=== PATIENT | male | born 1990 | race Caucasian/White ===

== ENCOUNTER 2022-04-30 08:21 | Emergency (ER) | payer OTHER, SELFPAY ==
[2022-04-30 08:37] VITALS: BP 172/106; PULSE 78; RESP 18; TEMP 36.6; O2SAT 98; BMI 33.6
--- NOTE | 2022-04-30 09:27 | XR_ITS ---
WS: [id number] Exam: XR lumbar spine 2-3V* [id number] Date/Time of Exam: 04/30/2022 9:32 AM Reason For Exam: fall/back pain No acute fracture or dislocation. Disc spaces are preserved. A prominent spur projects posteriorly al nate the lower endplate of L5 and might predispose the patient to spinal canal stenosis. Posterior anna ments are otherwise intact. XR/XR lumbar spine 2-3V* [id number] IMPRESSION: 1. No fracture or malalignment noted. 2. Prominent posterior spur projects from the lower endplate of L5 and might ca use spinal canal stenosis.
--- NOTE | 2022-04-30 09:29 | ED_ITS ---
HPI - Back Pain/Injury General: Chief Complaint: Back Pain/Injury Stated Complaint: back pain Time Seen by Provider: 04/30/22 08:22 Source: patient Mode of arrival: ambulatory Limitations: no limitations History of Present Illness: 31-year-old male presents emergency room complaining of low back pain. 2 days ago he fell at his home landed on his back and his buttocks yesterday he has had low back pain no radiation pain into the lower extremities no difficulty with bowel or bladder. No previous history of back injury or surgery. He has been taking some ibuprofen with moderate relief at best. MD elicited complaint: back pain Onset (ago): day(s) (2) Timing: constant Severity: moderate Quality: aching Location: lumbar spine Radiation: none Exacerbating factors: movement and walking Relieving factors: supine Context: fall Associated symptoms: Deny abdominal pain, arthralgias, chills, change in bowel habits, difficulty walking, dysuria, fatigue, fecal incontinence, fever(s), hematuria, myalgias, nausea, numbness, syncope, tingling/numbness/burning, urinary frequency, urinary urgency, vomiting or weakness Treatments prior to arrival: cold therapy, heat therapy and NSAIDS Work related injury: No Review of Systems Const: Denies: fever(s), chills or fatigue ENMT: Denies: throat pain, ear or mastoid pain, nasal discharge or nasal congestion Card: Denies: syncope Resp: Denies: dyspnea, productive cough or non-productive cough GI: Denies: abdominal pain, nausea, vomiting, fecal incontinence or change in bowel habits : Denies: dysuria, urinary urgency or hematuria Skin/Breast: Denies: rash or pruritus Neuro: Denies: difficulty walking PFSH ED PFSH: Medical History (Updated 04/30/22 @ 13:43 by Romulo Degroot DO) No significant past medical history Surgical History (Updated 04/30/22 @ 13:43 by Romulo Degroot DO) No pertinent past surgical history Social History (Updated 04/30/22 @ 13:43 by Romulo Degroot DO) Smoking and tobacco status: never smoked Alcohol intake: current Physical Exam Const: GENERAL APPEARANCE: cooperative and comfortable ORIENTATION/CONSCIOUSNESS: Yes awake, Yes oriented to person, Yes oriented to place and Yes oriented to time HENMT: COMMON NORMALS: normocephalic, atraumatic and hearing grossly normal bilaterally HEAD & SCALP: normocephalic and atraumatic Neck/C-Spine: COMMON NORMALS: no JVD Resp: COMMON NORMALS: normal respiratory effort, No retractions, No use of accessory muscles and clear to auscultation bilaterally AUSCULTATION: clear to auscultation bilaterally Cardio: COMMON NORMALS: no JVD, regular rate, regular rhythm and No murmurs present (Cardio) RATE: regular rate RHYTHM: regular rhythm GI: COMMON NORMALS: Soft to palpation and No hepatosplenomegaly present AUSCULTATION: Yes normoactive bowel sounds PALPATION: Yes Soft to palpation, No Tenderness to palpation present (GI), No Guarding due to palpation present (GI) and Yes No hepatosplenomegaly present Extremity: COMMON NORMALS: normal to inspection, capillary refill normal, no clubbing, cyanosis or edema, no calf tenderness and no pedal edema OTHER: Straight leg raising negative. Deep tendon reflexes +2/4 lower extremities. Neuro: SENSORIUM/ORIENTATION: Yes oriented to person, Yes oriented to place and Yes oriented to time Skin: COMMON NORMALS: no rashes or lesions noted GENERAL SKIN EXAM: no rashes or lesions noted Course Vital Signs: Vital signs: Vital Signs Temperature 97.8 F 04/30/22 08:37 Pulse Rate 78 04/30/22 08:37 Respiratory Rate 18 04/30/22 08:37 Blood Pressure 172/106 04/30/22 08:37 Pulse Oximetry 98 04/30/22 08:37 MDM - Back Pain/Injury Medical Decision Making Improved slightly with medications given. Will discharge home on steroid taper as well as pain medications anti-inflammatories muscle action to use as needed. Follow-up with primary care if not improving. Labs Radiology Impressions Lumbar Spine X-Ray 04/30/22 09:27 IMPRESSION: 1. No fracture or malalignment noted. 2. Prominent posterior spur projects from the lower endplate of L5 and might cause spinal canal stenosis. Discharge Plan Discharge Clinical Impression: Strain of lumbar region Prescriptions: New hydrocodone-acetaminophen 5-325 mg tablet 1 tab PO Q6H PRN (Reason: pain) Qty: 10 0RF prednisone 20 mg tablet 20 mg PO TID Qty: 15 0RF Rx Instructions: 1 p.o. 3 times daily x3 days, 1 p.o. twice daily x2 days, 1 p.o. daily x2 days diclofenac sodium 75 mg tablet,delayed release (DR/EC) 75 mg PO Q12H PRN (Reason: pain) Qty: 20 0RF tizanidine 4 mg tablet 4 mg PO Q6H PRN (Reason: muscle spasticity) Qty: 20 0RF Rx Instructions: do not exceed 3 doses per 24 hrs Discharge Orders: Discharge ED (Routine); Ordered 04/30/22 Ordered By: Romulo Degroot Patient Instructions: Opioid Safety Activity Restrictions/Additional Instructions: Follow-up with your primary care doctor if symptoms worsen. Coding Level of Care Code ED Area Operations Director for Jorge Fwd Exam Comprehensive
[2022-04-30] MEDS: dexamethasone 10 mg/mL INJ IM (09:54)
[2022-04-30] MEDS: ketorolac 60 mg/2 mL INJ IM (09:54)
== END 2022-04-30 11:00 | disposition home or self-care (01) ==
PROVIDERS: Emergency Provider Family Medicine
DX: S39.012A Strain of muscle, fascia and tendon of lower back, initial encounter (principal); W19.XXXA Unspecified fall, initial encounter
CPT/HCPCS: 72100; 96372; 99284; J1100; J1885

== ENCOUNTER 2023-01-12 01:35 | Emergency (ER) | payer OTHER, SELFPAY ==
[2023-01-12 01:46] VITALS: BP 137/92; PULSE 92; RESP 16; TEMP 36.3; O2SAT 97; BMI 33.0
[2023-01-12 02:48] VITALS: BP 138/81; PULSE 78; RESP 18; O2SAT 98
--- NOTE | 2023-01-12 02:56 | ED_ITS ---
HPI - Extremity Problem General: Chief complaint: Extremity Injury, Lower Stated complaint: RLE pain; R back pain Time Seen by Provider: 01/12/23 02:51 History of Present Illness: Patient is a 32-year-old male comes to the ED with right lower back pain. Symptoms started approximately 3 days ago. Patient says he has a history of sciatica and is having another flareup of sciatic pain. Symptoms started approximately 3 days ago. He denies any trauma or injury to cause symptoms. He rates the pain currently a 10 out of 10 and its located in the right lower back and it radiates down patient's right leg. He has tried applying cold packs, heat, massage, ibuprofen and Tylenol to help with symptoms. Denies any bladder or bowel incontinence, pelvic anesthesia or any weakness to lower extremities. Associated symptoms: Deny chest pain, fever(s) or rash Review of Systems Const: Denies: fever(s), chills or fatigue Eyes: Denies: change in vision or eye discomfort ENMT: Denies: throat pain, odynophagia, nasal discharge or nasal congestion Card: Denies: chest pain, palpitations, edema, swelling of feet/ankles, dyspnea on exertion or orthopnea Resp: Denies: dyspnea, productive cough or non-productive cough GI: Denies: abdominal pain, nausea, vomiting, diarrhea, constipation or hematochezia : Denies: flank pain, difficulty urinating, dysuria or hematuria Musc: Reports: back pain; Denies: neck pain or extremity swelling Skin/Breast: Denies: rash or new lesions Neuro: Denies: headache(s), numbness in extremities or weakness in extremities [facility] ED PFSH: Medical History (Updated 01/12/23 @ 03:01 by IKE Paulson) No significant past medical history Surgical History (Updated 04/30/22 @ 13:43 by Romulo Degroot DO) No pertinent past surgical history Social History (Updated 04/30/22 @ 13:43 by Romulo Degroot DO) Smoking and tobacco status: never smoked Alcohol intake: current Physical Exam Const: COMMON NORMALS: patient oriented x3 HENMT: COMMON NORMALS: normocephalic HEAD & SCALP: normocephalic MOUTH: Normal oral and palatal mucosa present THROAT: posterior oropharynx normal and uvula midline Neck/C-Spine: COMMON NORMALS: supple GENERAL: Yes normal visual inspection Resp: COMMON NORMALS: normal respiratory effort, No retractions, No use of accessory muscles and clear to auscultation bilaterally AUSCULTATION: clear to auscultation bilaterally Cardio: COMMON NORMALS: regular rate, regular rhythm, S1 normal heart sound present, S2 normal heart sound present, No gallops present (Cardio), No clicks present (Cardio), No murmurs present (Cardio) and Peripheral pulses 2+ throughout RATE: regular rate RHYTHM: regular rhythm HEART SOUNDS: S1 normal heart sound present and S2 normal heart sound present PERIPHERAL PULSES: Peripheral pulses 2+ throughout GI: COMMON NORMALS: Normal to inspection, nondistended, normoactive bowel sounds present, Soft to palpation, non-tender and no masses PALPATION: Yes Soft to palpation : COMMON NORMALS: Yes no CVA tenderness BLADDER/KIDNEY EXAM: Yes no CVA tenderness Back/Pelvis: COMMON NORMALS: no CVA tenderness LUMBAR SPINE/LOWER BACK: Yes pain with ROM, No lumbar spinal tenderness and Yes paraspinal muscle tenderness Lumbar paraspinal muscle tenderness: right Right lumbar paraspinal muscle tenderness: L4 and L5 Extremity: COMMON NORMALS: normal to inspection Neuro: COMMON NORMALS: patient oriented x3 GAIT: Yes Normal gait present Skin: GENERAL SKIN EXAM: dry skin Course Vital Signs: Vital signs: Vital Signs Temperature 97.4 F L 01/12/23 01:46 Pulse Rate 83 01/12/23 03:22 Respiratory Rate 16 01/12/23 03:22 Blood Pressure 138/81 01/12/23 02:48 Pulse Oximetry 100 01/12/23 03:22 Oxygen Delivery Me thod 01/12/23 02:48 MDM - Extremity (Nontraumatic) Medical Decision Making Patient is a 32-year-old male comes to the ED with right lower back pain. Symptoms started approximately 3 days ago. Patient says he has a history of sciatica and is having another flareup of sciatic pain. Symptoms started approximately 3 days ago. He denies any trauma or injury to cause symptoms. He rates the pain currently a 10 out of 10 and its located in the right lower back and it radiates down patient's right leg. Denies any cauda equina symptoms. Vitals stable. Patient has right lumbar paraspinal muscle tenderness L4 and L5. No lumbar spinal tenderness. Rest of exam is benign. Patient diagnosed lumbar radiculopathy and was given a dose of pain med, steroid and muscle relaxer here in the ED. He was stable for discharge home and sent home with a prescription for Celebrex, a muscle relaxer and steroid Dosepak. Return to ED precautions given. Follow-up with PCP in the next week for reevaluation. Patient understood and agreed with plan. Discharge Plan Discharge Patient Disposition: Home Clinical Impression: Lumbar radiculopathy Condition: Stable Prescriptions: New celecoxib 100 mg capsule 100 mg PO BID PRN (Reason: pain) Qty: 20 0RF methylprednisolone 4 mg tablets,dose pack See Rx Instructions .ROUTE .COMPLEX Qty: 21 0RF Rx Instructions: orally per package directions cyclobenzaprine 10 mg tablet 10 mg PO BID PRN (Reason: muscle spasm) Qty: 20 0RF No Action hydrocodone-acetaminophen 5-325 mg tablet 1 tab PO Q6H PRN (Reason: pain) Qty: 10 0RF prednisone 20 mg tablet 20 mg PO TID Qty: 15 0RF Rx Instructions: 1 p.o. 3 times daily x3 days, 1 p.o. twice daily x2 days, 1 p.o. daily x2 days diclofenac sodium 75 mg tablet,delayed release (DR/EC) 75 mg PO Q12H PRN (Reason: pain) Qty: 20 0RF tizanidine 4 mg tablet 4 mg PO Q6H PRN (Reason: muscle spasticity) Qty: 20 0RF Rx Instructions: do not exceed 3 doses per 24 hrs Discharge Orders: Discharge ED (Routine); Ordered 01/12/23 Ordered By: Rashid Cunha Discharge Diet: Regular Discharge Activity: Increase activity as tolerated Patient Instructions: Lumbar Radiculopathy (ED) Activity Restrictions/Additional Instructions: Follow-up with medical provider as directed in the next 5 to 7 days for reevaluation. Take medications as prescribed. Stretch lower back muscles daily. Apply cold pack or heat on lower back to help with symptoms as well. Return to the ER or your medical provider if condition worsens. Please read and understand discharge instructions. Thank you for choosing [facility] for your healthcare needs today. Please realize this is an emergency room and that we are providing you with a medical screening exam and this may not be complete and all inclusive of all the testing and or work up that you may need to determine your ailment or severity of your illness. It is very important that you follow up as instructed or that you return to the Emergency Department should you have concerns or if your condition changes or worsens in any way. Coding Level of Care Code ED Fabrication Lead for Jorge Strong
[2023-01-12] MEDS: orphenadrine 30 mg/mL Inj 2 mL 60 MG IM (03:01)
[2023-01-12] MEDS: ketorolac 60 mg/2 mL INJ IM (03:02)
[2023-01-12] MEDS: dexamethasone 10 mg/mL INJ IM (03:02)
[2023-01-12] MEDS: oxyCODONE-APAP 5-325 mg Tablet 1 TAB PO (03:19)
[2023-01-12 03:22] VITALS: PULSE 83; RESP 16; O2SAT 100
--- NOTE | 2023-01-19 17:05 | DCPLANNER ---
01.18.23 - patient called due to no primary care physician - unable to leave a voicemail 01.19.23 - patient called due to no primary care physician - unable to leave a voicemail.
== END 2023-01-12 03:23 | disposition home or self-care (01) ==
PROVIDERS: Emergency Provider Physician Assistant
DX: M54.16 Radiculopathy, lumbar region (principal)
CPT/HCPCS: 96372; 99284; J1100; J1885; J2360

== ENCOUNTER 2023-01-16 14:00 | Emergency (ER) | payer OTHER, SELFPAY ==
[2023-01-16 14:12] VITALS: BP 194/122; PULSE 86; RESP 18; TEMP 36.7; O2SAT 97
--- NOTE | 2023-01-16 15:06 | XR_ITS ---
WS: [id number] Lumbar spine, 3 views, 01/16/2023 Clinical Data: low back pain Comparison: Lumbar spine, 04/30/2022 Findings: No compression fractures or subluxation is seen. No disc space narrowing is seen. The transverse proc esses and SI joints are normal. XR/XR lumbar spine 2-3V* [id number] Impression: Negative lumbar spine.
--- NOTE | 2023-01-16 15:07 | W.ED.EXTPRO ---
HPI - Extremity Problem General: Chief complaint: Extremity Problem,Nontraumatic Stated complaint: Right leg pain Time Seen by Provider: 01/16/23 15:06 History of Present Illness: Patient complaining of flareup of right lower back pain with sciatica radiating down the right leg. Patient states has been going on for about 3 weeks. Patient went to the ER here about 4 days ago. Patient did get an injection as well as some medicine which helped for about 24 hours. The pain came back and is worse. Patient does have a follow-up appointment with his primary care doc in about 7 days. MD Complaint: extremity pain Onset (ago): week(s) (36) Pain Consistency: constant Severity scale (1-10): 10 Quality: burning and aching Radiation: distal (Down right leg) Relieving factors: nothing Exacerbating factors: weight bearing and palpation Associated symptoms: Reports no associated symptoms; Deny fever(s) or rash Context: other (History of low back pain with right-sided sciatica no recent injury) Review of Systems General: Reports: 10 or more systems reviewed and unremarkable except in HPI and below Const: Denies: fever(s), chills or body aches Eyes: Denies: change in vision ENMT: Denies: throat pain or hoarseness Resp: Denies: dyspnea, productive cough, non-productive cough or wheezing GI: Reports: diarrhea; Denies: abdominal pain, nausea or vomiting : Denies: flank pain, difficulty urinating, dysuria or urinary frequency Musc: Reports: back pain; Denies: neck pain Skin/Breast: Denies: rash, pruritus, erythema or photosensitivity Neuro: Denies: headache(s), numbness in extremities or weakness in extremities Psych: Denies: anxiety, depression, mood swings or panic attacks Endo: Denies: polyuria, polydipsia or tired all the time Kristopher/Lymph: Denies: easy bruising, easy bleeding, petechiae or purpura All/Imm: Denies: urticaria, throat swelling, tongue swelling or facial swelling PFSH ED PFSH: Medical History No significant past medical history Surgical History No pertinent past surgical history Social History (Reviewed 01/16/23 @ 15:19 by PAIGE Barriga Smoking and tobacco status: never smoked Alcohol intake: current Physical Exam Const: COMMON NORMALS: no acute distress, average body habitus, patient oriented x3, no limitations, healthy appearing, alert and well nourished HENMT: COMMON NORMALS: normocephalic, atraumatic and hearing grossly normal bilaterally HEAD & SCALP: normocephalic and atraumatic Eye: COMMON NORMALS: Equal, round and reactive pupils present, EOMs intact bilaterally and conjunctivae normal CONJUNCTIVA: Yes conjunctivae normal PUPIL: Yes Equal, round and reactive pupils present Neck/C-Spine: COMMON NORMALS: full ROM, no lymphadenopathy, supple, no JVD and Thyroid normal THYROID: Thyroid normal Lymph: LYMPHATIC: no lymphadenopathy noted Chest: COMMONS NORMALS: normal inspection of the chest and normal palpation of entire chest wall Resp: COMMON NORMALS: normal respiratory effort, No retractions, No use of accessory muscles and clear to auscultation bilaterally AUSCULTATION: clear to auscultation bilaterally Cardio: COMMON NORMALS: no JVD, regular rate, regular rhythm, S1 normal heart sound present, S2 normal heart sound present and No gallops present (Cardio) RATE: regular rate RHYTHM: regular rhythm HEART SOUNDS: S1 normal heart sound present and S2 normal heart sound present GI: COMMON NORMALS: Normal to inspection, nondistended, normoactive bowel sounds present, Soft to palpation, non-tender and No hepatosplenomegaly present PALPATION: Yes Soft to palpation and Yes No hepatosplenomegaly present Back/Pelvis: LUMBAR SPINE/LOWER BACK: Yes normal to inspection, Yes lumbar spinal tenderness (Worse at L4-5 with palpation) and Yes paraspinal muscle tenderness (Worse at L4-5 with palpation) Extremity: GENERAL: Yes normal exam except as noted Neuro: COMMON NORMALS: patient oriented x3, CN's II-XII intact bilaterally, moves all extremities, no focal motor deficits and no sensory deficits noted SENSORIUM/ORIENTATION: Yes alert Psych: COMMON NORMALS: mental status grossly normal, Normal thought process present, cooperative, normal affect and speech normal SPEECH: Yes normal speech THOUGHT PROCESS: Normal thought process present Course Reevaluation(s): Reevaluation #1: Reevaluation of patient showed patient's pain decreased and more tolerable Vital Signs: Vital signs: Vital Signs Temperature 98.0 F 01/16/23 14:12 Pulse Rate 77 01/16/23 15:20 Respiratory Rate 16 01/16/23 15:20 Blood Pressure 168/122 01/16/23 15:20 Pulse Oximetry 99 01/16/23 15:20 Oxygen Delivery Me thod 01/16/23 15:20 MDM - Extremity (Nontraumatic) Medical Decision Making Patient presents to the ER with complaints of low back pain with right sciatica, prior ER notes was reviewed as well as medications given to the patient that included anti-inflammatory steroid and muscle relaxer. Patient responded to IM Toradol as well as IM Decadron this visit. X-ray was noted and read by the radiologist as benign. Explained to patient we will try to change his prescriptions so he can make it to his already scheduled PCP appointment in approximately 6 days Differential Diagnosis Unlikely herpes zoster, gout, cellulitis, superficial thrombophlebitis, deep venous thrombosis of upper extremity, lower extremity edema or deep vein thrombosis of lower extremity Medical Records I reviewed the patient's medical records. Lab Data I reviewed the patient's lab results. Radiology Impressions Lumbar Spine X-Ray 01/16/23 15:06 Impression: Negative lumbar spine. Discharge Plan Discharge Patient Disposition: Home Clinical Impression: Low back pain radiating to right leg Condition: Stable Prescriptions: New prednisone 20 mg tablet 20 mg PO BID 5 Days Qty: 10 0RF tramadol 50 mg tablet 50 mg PO Q8H PRN (Reason: pain) Qty: 10 0RF meloxicam 15 mg tablet 15 mg PO DAILY Qty: 7 0RF prednisone 20 mg tablet 20 mg PO BID 5 Days Qty: 10 0RF No Action hydrocodone-acetaminophen 5-325 mg tablet 1 tab PO Q6H PRN (Reason: pain) Qty: 10 0RF prednisone 20 mg tablet 20 mg PO TID Qty: 15 0RF Rx Instructions: 1 p.o. 3 times daily x3 days, 1 p.o. twice daily x2 days, 1 p.o. daily x2 days diclofenac sodium 75 mg tablet,delayed release (DR/EC) 75 mg PO Q12H PRN (Reason: pain) Qty: 20 0RF tizanidine 4 mg tablet 4 mg PO Q6H PRN (Reason: muscle spasticity) Qty: 20 0RF Rx Instructions: do not exceed 3 doses per 24 hrs celecoxib 100 mg capsule 100 mg PO BID PRN (Reason: pain) Qty: 20 0RF methylprednisolone 4 mg tablets,dose pack See Rx Instructions .ROUTE .COMPLEX Qty: 21 0RF Rx Instructions: orally per package directions cyclobenzaprine 10 mg tablet 10 mg PO BID PRN (Reason: muscle spasm) Qty: 20 0RF Discharge Orders: Discharge ED (Routine); Ordered 01/16/23 Ordered By: Logan Lopez Referrals: Oswaldo Parham MD [Primary Care Provider] - 1 week Discharge Activity: Increase activity as tolerated Patient Instructions: Opioid Safety, Pain Management Coding Level of Care Code ED Inker Machine for Jorge Strong
[2023-01-16 15:20] VITALS: BP 168/122; PULSE 77; RESP 16; O2SAT 99
[2023-01-16] MEDS: dexamethasone 10 mg/mL INJ IM (15:27)
[2023-01-16] MEDS: ketorolac 60 mg/2 mL INJ IM (15:28)
== END 2023-01-16 16:10 | disposition home or self-care (01) ==
PROVIDERS: Emergency Provider Emergency Medicine; PCP Family Medicine
DX: M54.41 Lumbago with sciatica, right side (principal)
CPT/HCPCS: 72100; 96372; 99284; J1100; J1885